=== PATIENT | male | born 1990 | race Caucasian/White ===

== ENCOUNTER 2019-12-06 06:23 | Day surgery (SDC) | payer OTHER ==
[2019-12-06] MEDS ORDERED: fentaNYL 100 MCG/2 ML VIAL IVP ONE (06:24)
[2019-12-06] MEDS ORDERED: ONDANSETRON 4 MG/2 ML VIAL IVP ONE (06:24)
[2019-12-06] MEDS ORDERED: LIDOCAINE-MPF 2% 5 ML VIAL IM ONE (06:24)
[2019-12-06] MEDS ORDERED: PROPOFOL 200 MG/20 ML VIAL IVP ONE (06:24)
[2019-12-06] MEDS ORDERED: KETOROLAC 30 MG/ML VIAL IVP ONE (06:24)
[2019-12-06] MEDS ORDERED: CEFAZOLIN SODIUM IN 0.9 % NACL 2 GM/100 ML BAG IV ONE (06:24)
[2019-12-06] MEDS ORDERED: DEXAMETHASONE 4 MG/ML VIAL IVP ONE (06:24)
[2019-12-06] MEDS ORDERED: LACTATED RINGERS 1,000 ML IV ONE ×2 (06:57→08:33)
[2019-12-06] MEDS ORDERED: EPINEPHrine 1 MG/ML AMP ONE (06:58)
[2019-12-06] MEDS ORDERED: BUPIVACAINE 0.25% PF 30 ML VIAL ONE (06:59)
[2019-12-06] MEDS ORDERED: BUPIVACAINE 0.25% PF 30 ML VIAL SUBQ ONE ×2 (07:11→08:22)
--- NOTE | 2019-12-06 07:22 | ANESTHESIA ---
Pre-Anesthesia VS, & Labs - Diagnosis RIght knee pain - Procedure Right knee scope Vital Signs: Temp Pulse Resp BP Pulse Ox 36.6 C 82 16 146/88 H 100 12/06/19 06:36 12/06/19 06:36 12/06/19 06:36 12/06/19 06:36 12/06/19 06:36 Height 5 ft 8 in Weight (kg) 97.52 kg Home Medications and Allergies Home Medications: Ambulatory Orders No Known Home Medications 12/02/19 No Known Home Medications 12/02/19 Allergies/Adverse Reactions: Allergies Allergy/AdvReac Type Severity Reaction Status Date / Time No Known Drug Allergies Allergy Verified 12/02/19 14:56 Anes History & Medical History - Anesthetic History Anesthesia Complications: reports: No previous complications Family history of Anesthesia Complications: Denies Family history of Malignant Hyperthermia: Denies - Medical History Cardiovascular: reports: None Pulmonary: reports: None Gastrointestinal: reports: None Urinary: reports: None Musculoskeletal: reports: Other Endocrine/Autoimmune: reports: None Skin: reports: None Exam General: Oriented x3 Dental: WNL Mouth Opening: Greater than 4 Fingerbreadths Neck Mobility: Normal Mallampati classification: I Thyromental Distance: greater than 6 cm Respiratory: Lungs clear Cardiovascular: Regular rate, Normal S1, Normal S2, No murmurs Cognitive Status: Within normal limits Plan Anesthesia Type: General Consent for Procedure(s) Verified and Reviewed: Yes Code Status: Attempt Resuscitation ASA classification: 1-Healthy patient Is this case an emergency?: No
[2019-12-06] MEDS ORDERED: EPINEPHrine 1 MG/ML AMP IR ONE (07:59)
[2019-12-06] MEDS ORDERED: oxyCODONE 5 MG TABLET PO PRN (08:35)
[2019-12-06] MEDS ORDERED: ONDANSETRON 4 MG/2 ML VIAL IVP PRN (08:35)
--- NOTE | 2019-12-06 08:41 | OPERATIVE REPORT ---
Operative Report - Other Other Information/Narrative: Date of Surgery: 06 December 2011 Pre-Op Diagnosis: Right knee medial plica syndrome Procedure: Right knee arthroscopy with plica excision. Medial femoral condyle chondroplasty Postop Diagnosis: Right knee medial plica syndrome. Right knee medial femoral condyle cartilage lesion Primary Surgeon: Praneeth Lowery Secondary Surgeon: None Complications: None Tourniquet Time: 26 minutes EBL: 5 cc Indication For Surgery: 29-year-old male with 1 year of medial sided pain and mechanical symptoms adjacent to the patella. Examination and imaging was consistent with medial plica syndrome. He failed to respond to conservative measures. The risks, benefits, and alternatives were discussed. Risks include pain, bleeding, infection, damage to nearby structures and cartilage, lack of symptom relief, need for further surgery, DVT, PE, stroke, and . Written consent was obtained. Examination Under Anesthesia: ROM equal to the contralateral side. Stable dial at 30 & 90 degrees. Stable to varus and valgus stressing at 0 & 30 degrees. Normal Edie. Normal Pivot shift. No mechanical sensation Arthroscopic Findings: Loose bodies -none Synovium -a large plica was seen traveling from the medial side all the way to the lateral side. This impinged upon the medial femoral condyle extending into the patellofemoral joint itself. There is also a large fat pad that was debrided Patella cartilage -normal Trochlear cartilage -normal Medial femoral condyle cartilage -a 7 mm wide by 12 mm long partial-thickness cartilage lesion was seen adjacent to the notch in the weightbearing portion Medial tibial plateau cartilage -normal Medial meniscus -normal Anterior cruciate ligament -normal Posterior cruciate ligament -normal Lateral femoral condyle cartilage -normal Lateral tibial plateau cartilage -normal Lateral meniscus -normal Procedure in Detail: The patient was met in the pre-operative hold area on the day of the procedure. The operative extremity was signed and questions were answered. The patient was brought to the operating room and a general anesthetic was administered. Supine position was used and bony prominences were padded. An examination under anesthesia was performed. Standard prepping and draping was performed. A time out confirmed patient identification, laterality, procedure, allergies, antibiotics, and images. An Esmarch was used to exsanguinate the limb and the tourniquet was elevated to 250 mmHg. A standard diagnostic arthroscopy of the knee was performed through anterolateral and anteromedial portal sites. The anteromedial portal was created under direct visualization after localizing with a spinal needle. The findings can be found above. I then proceeded to use a shaver and biter to debride the plica back to the joint capsule. The fat pad was also debrided as well as the ligamentum mucosum. I then moved the camera to the medial side and worked with a shaver on the lateral side completing the fat pad and plica excision. I then placed the camera back into the lateral side and used a shaver and biter to debride all unstable pieces of cartilage from the medial femoral condyle. Final images were taken and all arthroscopic fluid and instruments were removed from the knee. The incisions were closed with buried monocryl sutures. Steri strips were applied. 20 cc of 0.25% Marcaine without epinephrine was injected near the portal sites. A sterile dressing and compression stocking was placed. The patient was awakened and transferred to recovery in stable condition.
[2019-12-06] MEDS: fentaNYL 100 MCG/2 ML VIAL ONE ×2 (09:05→09:10)
[2019-12-06] MEDS ORDERED: oxyCODONE 5 MG TABLET ONE (09:42)
[2019-12-06 10:05] VITALS: BP 338/55
== END 2019-12-06 06:24 | disposition home or self-care (01) ==
LOC: SDS 06:23
PROVIDERS: ATTEND Orthopaedic Surgery
DX: M67.51 Plica syndrome, right knee (principal); M94.9 Disorder of cartilage, unspecified

== ENCOUNTER 2021-09-05 12:23 | Outpatient (CLI) | payer OTHER ==
[2021-09-05] MEDS ORDERED: IOTHALAMATE MEGLUMINE 50 ML VIAL ONE (12:37)
[2021-09-05] MEDS ORDERED: LIDOCAINE-MPF 1% 10 ML AMP ONE (12:37)
[2021-09-05] MEDS ORDERED: GADOBUTROL 7.5 MMOL/7.5 ML VIAL ONE (12:37)
[2021-09-05] MEDS ORDERED: GADOBUTROL 7.5 MMOL/7.5 ML VIAL IVP ONE (13:14)
[2021-09-05] MEDS ORDERED: LIDOCAINE-MPF 1% 10 ML AMP IM ONE (13:15)
[2021-09-05] MEDS ORDERED: IOTHALAMATE MEGLUMINE 50 ML VIAL IVP ONE (13:16)
--- NOTE | 2021-09-05 13:57 | XRAY Report ---
PROCEDURE: Arthrogram Needle Placement INDICATIONS: RIGHT SHOULDER PAIN TECHNIQUE: The indications, alternatives, benefits, risks, and complications of the procedure were explained to the patient. Written informed consent was obtained and placed in the chart. The shoulder was examin ed fluoroscopically and a site for needle placement chosen for entry into the glenohumeral joint from an anterior approach. The skin was prepped and draped in the usual fashion, and 1% lidocaine infilt rated from skin down to joint capsule. A spinal needle was inserted into the glenohumeral joint, and a small amount of iodinated contrast media injected to confirm intra-articular placement of the need le tip. This was followed by approximately 12 ml of saline/gadolinium (20cc normal saline/0.2 gadoli nium) contrast solution. The needle was removed and a dressing was applied. The patient was given postprocedural instructions and sent to the MRI suite for imaging. FINDINGS: A single fluoroscopic spot image demonstrates intra-articular location of injected iodinated contrast . IMPRESSION: Successful fluoroscopically guided administration of gadolinium contrast solution into the shoulder j ivonne for MR arthrogram. Reviewed by: Margot Rg MD, PhD on 09/05/2021 1:56 PM PDT Approved by: Margot Rg MD, PhD on 09/05/2021 1:56 PM PDT Station ID: [id number]
--- NOTE | 2021-09-05 17:27 | MRI Report ---
PROCEDURE: Arthrogram Shoulder RT INDICATIONS: RIGHT SHOULDER PAIN TECHNIQUE: After the administration of 12 mL of dilute intra-articular Gadolinium contrast, oblique coronal T1 a nd T2 spin echo with fat saturation, oblique sagittal T1 spin echo with and without fat saturation, o blique sagittal T2 fast spin echo with fat saturation, axial T1 spin echo with fat saturation through the shoulder. COMPARISON: None. Findings: Supraspinatus: Mild tendinopathy with interstitial and small, partial bursal surface tear. Infraspinatus: Mild tendinopathy without evidence of tear. Subscapularis: No evidence of tear. Teres minor: No evidence of tear. Labrum: Slight irregularity of the superior labrum without overt tear. Biceps tendon: No evidence of subluxation or tear. Acromioclavicular joint: Normal alignment. Muscle: No significant atrophy. Bones: No significant abnormality. Specifically, no evidence of fracture, contusion, or necrosis. Miscellaneous: No subacromial/subdeltoid bursal fluid. No intra-articular bodies. Intact coracoclavicular ligament. IMPRESSION: 1. Mild hypospadias tendinopathy with interstitial and small, partial bursal surface tear. 2. Mild infraspinatus tendinopathy without evidence of tear. 3. Slight irregularity of the superior labrum without overt tear. Reviewed by: Quentin Alvarado MD on 09/05/2021 5:25 PM PDT Approved by: Quentin Alvarado MD on 09/05/2021 5:25 PM PDT Station ID: [id number]
== END 2021-09-05 12:24 | disposition home or self-care (01) ==
LOC: DI 12:23
PROVIDERS: ATTEND Student in an Organized Health Care Education/Training Program
DX: S46.821A Laceration of other muscles, fascia and tendons at shoulder and upper arm level, right arm, initial encounter (principal)
CPT/HCPCS: 23350; 73222; 77002; A9585; Q9961

== ENCOUNTER 2021-10-31 06:00 | Outpatient (CLI) | payer OTHER ==
--- NOTE | 2021-10-31 15:49 | XRAY Report ---
PROCEDURE: Shoulder 3 View RT INDICATIONS: SHOULDER PAIN TECHNIQUE: 4 views of the shoulder were acquired. COMPARISON: None. FINDINGS: Bones: No fractures or dislocations. No suspicious bony lesions. Visualized ribs appear intact. Soft tissues: No suspicious soft tissue calcifications. IMPRESSION: No fracture. No osseous lesion. If symptoms and/or clinical concern for pathology persis ts, further assessment with repeat plain film radiographs (7-10 days) or advanced imaging (CT, MR, clement ne scan) should be considered. Reviewed by: Margot Rg MD, PhD on 10/31/2021 3:48 PM PDT Approved by: Margot Rg MD, PhD on 10/31/2021 3:48 PM PDT Station ID: [id number]
== END 2021-10-31 23:59 | disposition home or self-care (01) ==
LOC: DI.WOS 06:00
PROVIDERS: ATTEND Physician Assistant Surgical
DX: M25.511 Pain in right shoulder (principal)

== ENCOUNTER 2022-06-24 08:17 | Outpatient (CLI) | payer OTHER ==
[2022-06-24 09:19] VITALS: BP 142/90
--- NOTE | 2022-06-24 09:19 | SLEEP CARE CONSULTATION ---
Information from patient questionnaire entered by Jewels Winn. I have reviewed and concur with the information entered by Jewels Winn. This document represents the service I personally performed and the decisions made by me, Nelly Toth ARNP. History of Present Illness Service Date and Time: 06/24/2022 0817 Reason for Visit: New patient, sleep apnea on CPAP therapy Chief Complaint: reports: Unrefreshed sleep, Snoring, Excessive daytime sleepiness, Observed pauses in breathing, Fatigue, Frequent awakenings at night Date of Onset: 1YR Usual bedtime: 9PM Time it takes to fall asleep: 15-20MIN Snores at night: Yes Observed to quit breathing while asleep: Yes Sleeps alone due to snoring: No Number of times waking at night: 4-5 Reasons for waking at night: reports: Choking, Snoring, Gasping for air, Bathroom, Other (NIGHTMARES) Toss, Turn, or Twitch while sleeping: Yes Recalls having dreams: Yes Usually gets out of bed at: 5AM Feels refreshed in the morning: No Morning headache: Yes (RESOLVES BY NOON ) Sleepy or fatigued during the day: Yes Ever fallen asleep while driving: No Takes day naps: No Dreams during day naps: No Prior sleep studies: Yes ([facility] MAR 20, 2022 ) Additional HPI information: SEPIDEH COOK was previously diagnosed to have unknown, AHI unknown, obstructive sleep apnea-hypopnea syndrome and comes in today to establish care for CPAP the rapy. He states his AHI was 56 which is severe sleep apnea. He complains today of excessive daytime sleepiness, fatigue, frequent night awakenings, observed pauses in breathing, snoring and unrefreshed sleep. He has been trying to get used the CPAP since he started using it in April 2022. He will wake up having taken mask off during the night. He did not bring in copy of last sleep study, request was made to get them sent to us. - Parasomnia Symptoms Ever been unable to move upon waking from sleep: Yes Walks in sleep: No Talks in sleep: Yes Ever acted out dreams in sleep: Yes Ever felt weak in the knees when startled or emotional: Yes Bothered by creepy, crawly, restless sensations in legs: No Problems with memory or concentration: Yes CPAP Compliance Data - Data Reviewed with Patient Average duration of nightly device use: 5 hours 19 minutes Compliance rate %: 43.3 ( days used; 05/25/2022-06/23/2022) Current pressure setting (cmH2O): 6-12 (90% 12 cmH2O) Average residual AHI: 2.3 Central apnea: 0.2 Obstructive apnea: 0.7 Hypopnea: 1.4 Average large leak: 28 secs Compliance data discussion: He was set up with a gogamingostation 2 and started using it in April 2022. He is getting his supplies from [employer]. He is using a nasal cushion, ResMed Airfit N20. He also has a full face to use when his allergies are being bad. He has not changed out mask cushion since he started in April. Initial period of CPAP use: 80% compliance on dates 05/01/2022-05/30/2022. His average AHI was 2.6. His average daily use was 5 hours 57 minutes and used it / days. Subjective Missed days of use due to: reports: family emergency (new baby in NICU, sleeping in hospital), mask issues (he is waking up with mask off face and laying on bed) Patient concerns: denies: aerophagia, mask discomfort, air blowing in eyes, mask leak noise, condensation in mask/hose, nasal congestion, dry mouth, nose, throat, epistaxis Observed to snore while using device: No Current pressure setting perceived as: comfortable On therapy, patient: reports: sleeping better, awakening more refreshed, being more awake and alert during the day, more rested overall. denies: drowsiness while driving Initial [place] Sleepiness Scale score: 20 (06/23/22) Past Medical History Past Medical History: reports: Anxiety, Depression, GERD, Other (PTSD, ED, CRONIC SINUS) Social History The patient's occupation is a AM. Patient is and lives in . Have you smoked in the past 12 months: No Alcohol use: No Caffeine use: Yes Caffeine amount and frequency: 1 CAN ONCE A WEEK Family History Family history of sleep disordered breathing: No Allergies and Home Medications Known drug allergies: No Drug allergies reviewed: Yes (NKDA) Home medication list reviewed: Yes Allergy and home medication list: Medications: Sertraline Gabapentin Omeprazole Trazadone Atorvastatin Review of Systems Weight gain over past 5 years: 20 Gastrointestinal: reports: heartburn Neurological: reports: headaches Psychiatric: reports: anxiety, depression Ear/Nose/Throat: reports: nasal congestion, sinus problems, nose bleeds, injury to nose, wisdom teeth removed. denies: tonsillectomy Musculoskeletal: reports: joint pain, muscle pain or cramping Physical Exam Vital signs obtained and entered by: JEWELS Mejia MA Blood Pressure: 142/90 (LEFT ARM) Cuff size: regular Heart Rate: 73 O2 Saturation: 98 Height: 5 ft 9 in Weight: 240 lb 12.8 oz Body Mass Index: 35.5 BMI Classification: Obese Neck circumference: 18.5 Heart: regular rate and rhythm Lungs: clear bilaterally Impression and Plan 1. Obstructive Sleep Apnea-Hypopnea Syndrome, unknown, with good treatment compliance and good apnea control. On CPAP therapy, the patient has better sleep quality and is more rested overall. Patient has been having problems with finding his mask off without knowledge of removing it. But lately his compliance is more affected by spending nights with new baby in the NICU in last week or so. In his initial period he did have 80% compliance with his CPAP. I will update his DME, [employer]. We are trying to get a copy of his last sleep study done at [facility] in [place], [place]. I will have him follow up in 3 months to see how he is doing with his CPAP. Patient's apnea severity and rationale for treatment to reduce apnea, improve sleep quality and reduce cardiovascular and cerebrovascular events was reviewed. I also reviewed the benefit of consistent device use of CPAP for gastric reflux, depression, anxiety and mood disorder (PTSD). * Continue auto CPAP pressure at 8-12 cmH2O * Update supplies * Notify me if snoring with mask or feeling that the pressure is too much or too little * Attempt to lose weight * Call this office if any problems using CPAP * Return for follow up in 3 months, or sooner if concerns arise Counseling Topics: Weight loss health impact Visit Type: In Office Time Spent with Patient (minutes): 36 Provider Statement: I spent 100% of the Face to Face Visit with the patient with greater than 50% spent counseling the patient and coordination of care.
== END 2022-06-24 08:18 | disposition home or self-care (01) ==
LOC: SC 08:17
PROVIDERS: ATTEND Nurse Practitioner Family
DX: G47.33 Obstructive sleep apnea (adult) (pediatric) (principal); E66.9 Obesity, unspecified; Z68.35 Body mass index [BMI] 35.0-35.9, adult
CPT/HCPCS: 99203; 99212

== ENCOUNTER 2022-09-17 08:25 | Outpatient (CLI) | payer OTHER ==
--- NOTE | 2022-09-17 08:54 | SLEEP CARE CONSULTATION ---
Information from patient questionnaire entered by Jewels Winn. I have reviewed and concur with the information entered by Jewels Winn. This document represents the service I personally performed and the decisions made by , Nelly Toth ARNP. History of Present Illness Service Date and Time: 09/17/2022 08 Previous diagnosis: Severe, Obstructive Sleep Apnea-Hypopnea Syndrome AHI: 56.5 (in 2021) Reason for follow up: three month (F/U), annual Equipment type: CPAP ([employer]CH Dreamstation 2) Equipment obtained from: Other ([employer]) Mask style: Full face Mask brand: Resmed (AirFit F20) Backup mask available: Yes (old mask) Last cushion change: 1 month Prior sleep studies: Yes ([facility] MAR 20, 2022 ) HPI additional information: SEPIDEH COOK was diagnosed to have severe, AHI 56.5, obstructive sleep apnea- hypopnea syndrome and returned today for CPAP therapy three month follow-up. Sleep Study - Results Prior sleep studies: Yes ([facility] MAR 20, 2022 ) CPAP Compliance Data - Data Reviewed with Patient Average duration of nightly device use: 5 HRS 38 MINS 33 SECS Compliance rate %: 65.6 (06/17/22-09/14/22; 74/90 days used) Current pressure setting (cmH2O): 6-12 Average residual AHI: 2.5 Central apnea: 0.3 Obstructive apnea: 0.5 Hypopnea: 1.7 Average large leak: 14 mins 19 secs Subjective Missed days of use due to: reports: travel, other (nasal septum surgery August 29) Patient concerns: denies: aerophagia, mask discomfort, air blowing in eyes, mask leak noise, condensation in mask/hose, nasal congestion, dry mouth, nose, throat, epistaxis Observed to snore while using device: No (sometimes) Current pressure setting perceived as: comfortable On therapy, patient: reports: sleeping better, awakening more refreshed, being more awake and alert during the day, more rested overall. denies: drowsiness while driving Initial [place] Sleepiness Scale score: 20 (06/23/22) Current [place] Sleepiness Scale score: 7 (09/17/22) Allergies and Home Medications Known drug allergies: No Drug allergies reviewed: Yes Home medication list reviewed: Yes (no changes) Allergy and home medication list: Allergies No Known Drug Allergies Allergy (Verified 09/16/22 13:31) Review of Systems Review of systems same as previous: No (nasal septum surgery, 08/29/2022) Physical Exam Vital signs obtained and entered by: JEWELS Mejia MA Blood Pressure: 138/88 (LEFT ARM) Cuff size: long Heart Rate: 82 O2 Saturation: 97 Height: 5 ft 8 in Weight: 254 lb 12.8 oz Body Mass Index: 38.7 BMI Classification: Obese Impression and Plan 1. Obstructive Sleep Apnea-Hypopnea Syndrome, severe, with good treatment compliance and good apnea control. On CPAP therapy, the patient has better sleep quality and is more rested overall. His compliance has suffered due to [place] in a car and he also had nasal septum surgery a couple of weeks ago. He was unable to use it for a period of time post-surgery to enhance healing and reduce discomfort. He states he is now feeling more comfortable with the mask on his face again and will start using it consistently. He still has days that he will find the mask off of his face or take off because of claustrophobia\PTSD issues at night. Patient's apnea severity and rationale for treatment to reduce apnea, improve sleep quality and reduce cardiovascular and cerebrovascular events was reviewed. I also reviewed the benefit of consistent device use of CPAP for gastric reflux, depression, anxiety and mood disorder (PTSD). 2. Obesity, unspecified. Currently patients BMI is 38.7. Obesity increases the risk of apnea, CPAP pressure requirements and overall health risks especially cardiovascular and diabetes. Thus patient is advised to lose weight. * Continue auto CPAP pressure at 6-12 cmH2O * Notify me if snoring with mask or feeling that the pressure is too much or too little * Attempt to lose weight * Call this office if any problems using CPAP * Return for follow up in 1 year, or sooner if concerns arise Counseling Topics: Spare mask, Weight loss health impact Visit Type: In Office Time Spent with Patient (minutes): 20 Provider Statement: I spent 100% of the Face to Face Visit with the patient with greater than 50% spent counseling the patient and coordination of care.
[2022-09-17 08:55] VITALS: BP 138/88
== END 2022-09-17 08:26 | disposition home or self-care (01) ==
LOC: SC 08:25
PROVIDERS: ATTEND Nurse Practitioner Family
DX: G47.33 Obstructive sleep apnea (adult) (pediatric) (principal); E66.9 Obesity, unspecified; Z68.38 Body mass index [BMI] 38.0-38.9, adult
CPT/HCPCS: 99212; 99213

== ENCOUNTER 2023-11-05 15:36 | Outpatient (CLI) | payer OTHER ==
--- NOTE | 2023-11-05 16:09 | Sleep Patient Instructions ---
Sleep Center Visit Summary - Patient Visit Information Reason for Visit: Annual follow-up - Patient Instructions Additional Instructions: You will continue with CPAP therapy with pressure changed to 7-13 cmH2O. A supply prescription will be updated with your DME. We encourage you to continue to try to lose weight. Please follow up with the sleep care office in 1 year. - Clinic Information Contact: [facility] [address] [place] [email or web address] T: [phone]
--- NOTE | 2023-11-05 16:11 | SLEEP CARE CONSULTATION ---
Information from patient questionnaire entered by Jewels Winn. I have reviewed and concur with the information entered by Jewels Winn. This document represents the service I personally performed and the decisions made by me, Nelly Toth ARNP. History of Present Illness Service Date and Time: 11/05/2023 1536 Previous diagnosis: Severe, Obstructive Sleep Apnea-Hypopnea Syndrome AHI: 56.5 (in 2021) Reason for follow up: annual (LAST SEEN 08/2022) Equipment type: CPAP ([employer] Dreamstation 2 MACHINE) Equipment obtained from: Other ([employer]; getting supplies) Mask style: Full face Mask brand: Resmed (AirFit F20) Backup mask available: Yes Last cushion change: Last thursday Prior sleep studies: Yes ([facility] MAR 20, 2022 ) HPI additional information: SEPIDEH COOK was diagnosed to have severe, AHI 56.5, obstructive sleep apnea- hypopnea syndrome and returned today for CPAP therapy annual follow-up. Sleep Study - Results Prior sleep studies: Yes ([facility] MAR 20, 2022 ) CPAP Compliance Data - Data Reviewed with Patient Average duration of nightly device use: 6 hours 30 minutes Compliance rate %: 89 (347/365 days used) Current pressure setting (cmH2O): 6-12 (90% pressure 11.7) Average residual AHI: 2.3 Subjective Missed days of use due to: reports: illness, other (Surgery) Patient concerns: denies: aerophagia, mask discomfort, air blowing in eyes, mask leak noise, condensation in mask/hose, nasal congestion, dry mouth, nose, throat, epistaxis Observed to snore while using device: Yes (occasional) Current pressure setting perceived as: too low On therapy, patient: reports: sleeping better, awakening more refreshed. denies: drowsiness while driving Initial [place] Sleepiness Scale score: 20 (06/23/22) Current [place] Sleepiness Scale score: 16 (11/05/23) Allergies and Home Medications Known drug allergies: No Drug allergies reviewed: Yes Home medication list reviewed: Yes (hydroxyzine, clonidine, wellbutrin) Allergy and home medication list: Allergies No Known Drug Allergies Allergy (Verified 11/03/23 12:11) Home Medications Medication Instructions Recorded Confirmed Last Taken Type Omeprazole Magnesium [Prilosec] See Rx Instructions .ROUTE .COMPLEX 06/24/22 11/05/23 Unknown History Sertraline HCl See Rx Instructions .ROUTE .COMPLEX 06/24/22 11/05/23 Unknown History Trazodone HCl See Rx Instructions .ROUTE .COMPLEX 06/24/22 11/05/23 Unknown History buPROPion [Wellbutrin Sr] See Rx Instructions .ROUTE .COMPLEX 11/05/23 11/05/23 Unknown History cloNIDine HCL [Clonidine HCl] See Rx Instructions .ROUTE .COMPLEX 11/05/23 11/05/23 Unknown History hydrOXYzine HCL [Hydroxyzine HCl] See Rx Instructions .ROUTE .COMPLEX 11/05/23 11/05/23 Unknown History Review of Systems Review of systems same as previous: Yes (RT SHOULDER SLAP TEAR SURGERY) Physical Exam Vital signs obtained and entered by: JEWELS Mejia MA Blood Pressure: 164/93 (LEFT ARM) Cuff size: long Heart Rate: 81 O2 Saturation: 99 Height: 5 ft 8 in Weight: 248 lb Weight change since last visit: 6 lb loss Body Mass Index: 37.7 BMI Classification: Obese Impression and Plan 1. Obstructive Sleep Apnea-Hypopnea Syndrome, severe, with good treatment compliance and good apnea control. On CPAP therapy, the patient has better sleep quality and is more rested overall. His is saying he is snoring with the mask on. He has noticed lately that he is more tired and is not sure if it is CPAP for what has been going through with his shoulder and surgery. To resolve snore, the CPAP pressure will be changed to 7-13 cmH20. Patient advised to contact this office if pressure change uncomfortable or if pressure change does not resolve snore. Patient's apnea severity and rationale for treatment to reduce apnea, improve sleep quality and reduce cardiovascular and cerebrovascular events was reviewed. I also reviewed the benefit of consistent device use of CPAP for gastric reflux, depression/anxiety, mood disorder (PTSD). 2. Obesity, unspecified. Currently patients BMI is 37.7. He has lost weight. Obesity increases the risk of apnea, CPAP pressure requirements and overall health risks especially cardiovascular and diabetes. Thus patient is advised to continue to try to lose weight. * Change auto CPAP pressure to 7-13 cmH2O * Update supply prescription * Notify me if snoring with mask or feeling that the pressure is too much or too little * Continue to try to lose weight * Call this office if any problems using CPAP * Return for follow up in 12 months, or sooner if concerns arise Adjust device pressure to (cmH2O): 7-13 Counseling Topics: Spare mask, Weight loss health impact Prescriptions: Device supplies Follow up with Sleep Care in: 1 year Visit Type: In Office Time Spent with Patient (minutes): 20 Provider Statement: I spent 100% of the Face to Face Visit with the patient with greater than 50% spent counseling the patient and coordination of care.
[2023-11-05 16:20] VITALS: BP 164/93; O2SAT 99
== END 2023-11-05 15:37 | disposition home or self-care (01) ==
LOC: SC 15:36
PROVIDERS: ATTEND Nurse Practitioner Family
DX: G47.33 Obstructive sleep apnea (adult) (pediatric) (principal); E66.9 Obesity, unspecified; Z68.37 Body mass index [BMI] 37.0-37.9, adult
CPT/HCPCS: 99212; 99213